=== PATIENT | female | born 1940 | race Caucasian/White ===

== ENCOUNTER 2017-05-29 05:54 | Inpatient (IN) | payer OTHER ==
[~2017-05-29] VITALS: Ht 154.9 cm; Wt 108.6 kg
[~2017-05-29 05:54] MED LIST: ACETAMINOPHEN-1 EAC1 PO; ASPIR-LOW81 MG PO; CLONAZEPAM0.5 MG PO; CYANOCOBAL1000 MCG/2 IM; CYMBALTA60 MG PO; DILANTIN INFATA50 MG PO; DILTIAZEM 24HR240 MG PO; IRBESARTAN150 MG PO; LYRICA100 MG PO; MELATONIN5 M1 PO; MIRALAX17 GM PO; OMEPRAZOLE40 M1 PO; PHENYTOIN SODI100 M1 PO; PRAVASTATIN SOD40 MG PO; PROAIR HFA8.5 GM IH
[2017-05-29 06:37] LABS: EOSINOPHIL (%) 3.6 % (0-5); EOSINOPHIL COUNT 0.3 K/uL (0-0.3); HEMATOCRIT 38.8 % (36.0-46.0); IMMATURE GRANULOCYTE (%) 0.3 % (0.0-0.7); INSTRUMENT ABS NEUTROPHIL CT 5.5 K/uL; LYMPHOCYTE COUNT 1.5 K/uL (1.0-2.8); MCH 26.6 PG (29.0-34.0); MCHC 31.7 G/DL (30.0-36.0); MEAN PLAT.VOLUME 10.3 uM^3 (9.5-12.4); MONOCYTE (%) 8.1 % (3-12); MONOCYTE COUNT 0.7 K/uL (0-0.8); NEUTROPHIL (%) 68.3 % (45-76); NEUTROPHIL COUNT 5.5 K/uL (1.8-6.4); PLATELET COUNT 349 K/uL (156-360); RBC DIS.WIDTH-CV 14.6 % (11.8-14.6); RBC DIS.WIDTH-SD 44.4 % (39-53); RED BLOOD COUNT 4.62 M/uL (3.80-5.20)
[2017-05-29 06:45] LABS: CHLORIDE 107 mEq/L (99-109); POTASSIUM 3.7 mEq/L (3.7-5.4); SODIUM 144 mEq/L (136-147)
[2017-05-29 06:47] LABS: GLUCOSE 122 mg/dL (70-99)
[2017-05-29 06:48] LABS: ANION GAP 12 MEQ/L (2-14)
[2017-05-29 06:50] LABS: SERUM ETHYL ALCOHOL < 10 mg/dL
[2017-05-29 06:51] LABS: GFR ESTIMATE (CALCULATED) 51 mL/min/
[2017-05-29 06:52] LABS: UREA NITROGEN (BUN) 11 mg/dL (9-23)
[2017-05-29 07:20] LABS: ADD MIUA? YES; BILIRUBIN NEGATIVE; BLOOD NEGATIVE; COLOR YELLOW ((YELLOW)); GLUCOSE (STRIP) NEGATIVE; KETONES 5; LEUKOCYTES NEGATIVE; NITRITE NEGATIVE; PROTEIN (STRIP) 100; SPECIFIC GRAVITY 1.013 (1.000-1.030); UROBILINOGEN 0.2 MG/DL (0.2-1.0)
[2017-05-29 07:36] LABS: AMPHETAMINE NEGATIVE (500 ng/mL); BARBITURATES NEGATIVE (200 ng/mL); BENZODIAZEPINES NEGATIVE (150 ng/mL); COCAINE NEGATIVE (150 ng/mL); INTERNAL CONTROLS VALID? YES; METHADONE NEGATIVE (200 ng/mL); METHAMPHETAMINE NEGATIVE (500 ng/mL); OPIATES (MORPHINE) NEGATIVE (100 ng/mL); OXYCODONE NEGATIVE (100 ng/mL); PHENCYCLIDINE NEGATIVE (25 ng/mL); PROPOXYPHENE NEGATIVE (300 ng/mL); THC CANNABINOIDS NEGATIVE (50 ng/mL); TRICYCLIC ANTIDEPRESSANTS NEGATIVE (300 ng/mL)
[2017-05-29 07:41] LABS: BACTERIA RARE /HPF; EPITHELIAL CELLS 2+ /HPF; MUCUS TRACE /LPF; RED BLOOD CELLS 0-5 /HPF (0-5); WHITE BLOOD CELLS 0-5 /HPF (0-5)
[2017-05-29] MEDS ORDERED: LEVETIRACETAM250 MG PO (10:08)
[2017-05-29] MEDS ORDERED: OLANZAPINE2.5 MG PO (10:09)
[2017-05-29 13:26] VITALS: BP 149/77
[2017-05-29 14:16] VITALS: BP 149/77
[2017-05-29] MEDS ORDERED: B-121000 MC2 PO (14:36)
[2017-05-29 15:49] VITALS: BP 185/101
[2017-05-29 16:53] VITALS: BP 138/65
[2017-05-30 07:52] VITALS: BP 135/75
[2017-05-30 15:46] VITALS: BP 143/70
[2017-05-31 08:03] VITALS: BP 120/59
[2017-05-31 15:27] VITALS: BP 130/60
[2017-06-01 07:25] VITALS: BP 115/76
[2017-06-01 15:33] VITALS: BP 147/63
[2017-06-02 07:34] VITALS: BP 125/58
[2017-06-02 16:30] VITALS: BP 128/79
[2017-06-03 07:58] VITALS: BP 129/75
[2017-06-03] MEDS ORDERED: OLANZAPINE5 MG PO (10:14)
[2017-06-03] MEDS ORDERED: DONEPEZIL HCL5 MG PO (10:14)
[2017-06-03] MEDS ORDERED: ZOLPIDEM TARTRAT5 MG PO (10:14)
== END 2017-06-03 15:40 | disposition home or self-care (01) | DRG 885 ==
LOC: EME → EDBD 05:54 → 1WEST 11:57 → EDOF 11:57 → 1WEST 13:15
PROVIDERS: Emergency Medicine
DX: F29 Unspecified psychosis not due to a substance or known physiological condition (principal); F09 Unspecified mental disorder due to known physiological condition; F32.9 Major depressive disorder, single episode, unspecified; I10 Essential (primary) hypertension; E78.00 Pure hypercholesterolemia, unspecified; E78.5 Hyperlipidemia, unspecified; J44.9 Chronic obstructive pulmonary disease, unspecified; K21.9 Gastro-esophageal reflux disease without esophagitis; E53.8 Deficiency of other specified B group vitamins; M19.90 Unspecified osteoarthritis, unspecified site; R01.1 Cardiac murmur, unspecified; Z79.82 Long term (current) use of aspirin
CPT/HCPCS: 70551; 80048; 81003; 82607; 82746; 84443; 85025; 90839; 97150 GO; 97165 GO; 99202; 99281; 99283; G0480; J3420

== ENCOUNTER → 2018-07-25 | Outpatient (CLI) | payer OTHER, BC ==
[~2018-07-25] VITALS: Ht 152.4 cm; Wt 85.4 kg
[~2018-07-25] MED LIST changes: +B-121000 MC2 PO; +DONEPEZIL HCL5 MG PO; +LEVETIRACETAM250 MG PO; +OLANZAPINE2.5 MG PO; +OLANZAPINE5 MG PO; +ZOLPIDEM TARTRAT5 MG PO
== END | disposition home or self-care (01) ==
LOC: AMB 10:10
DX: D12.2 Benign neoplasm of ascending colon (principal); D12.5 Benign neoplasm of sigmoid colon; K57.30 Diverticulosis of large intestine without perforation or abscess without bleeding; K64.8 Other hemorrhoids; D64.9 Anemia, unspecified; K21.9 Gastro-esophageal reflux disease without esophagitis; E78.5 Hyperlipidemia, unspecified; E66.01 Morbid (severe) obesity due to excess calories; Z68.36 Body mass index [BMI] 36.0-36.9, adult; I10 Essential (primary) hypertension; R00.0 Tachycardia, unspecified; Z88.8 Allergy status to other drugs, medicaments and biological substances; Z79.82 Long term (current) use of aspirin
CPT/HCPCS: 88305; 93005